=== PATIENT | female | born 1990 | race American Indian/Alaskan Native ===

== ENCOUNTER 2018-01-10 17:20 | Outpatient (CLI) | payer BC ==
[2018-01-10 18:36] VITALS: BP 117/66
--- NOTE | 2018-01-10 20:03 | Ultrasound Report ---
FINAL REPORT PROCEDURE: US OB LIMITED TECHNIQUE: Real-time limited sonographic examination was performed for evaluation of amniotic fluid volume for each fetus with image documentation (1 or more fetuses). CPT 86733 HISTORY: MARKELL, NRFHT COMPARISON: No prior studies are available for comparison. FINDINGS: FETUS IUP: Single living intrauterine . Position: Cephalic Amniotic fluid volume: Amniotic fluid index measures 19.4 centimeters Heart rate and rhythm: 137 BPM, Regular . IMPRESSION: Amniotic fluid index measures 19.4 centimeters
--- NOTE | 2018-01-11 07:17 | Ultrasound Report ---
BIOPHYSICAL PROFILE: INDICATION: Nonreassuring heart tones in clinic. COMPARISON: None similar. TECHNIQUE: Transabdominal ultrasound with Doppler interrogation. 2 - breathing movements 2 - movements 2 - posture and tone 2 - Qualitative amniotic fluid volume 8 - TOTAL SCORE OF POSSIBLE 8 Heart Rate (bpm) 137 CONCLUSION: Findings, as above.
== END 2018-01-10 20:49 | disposition home or self-care (01) ==
LOC: TRG 17:20
PROVIDERS: ATTEND Obstetrics & Gynecology
DX: O47.03 False labor before 37 completed weeks of gestation, third trimester (principal); Z3A.32 32 weeks gestation of pregnancy
CPT/HCPCS: 76815; 76819

== ENCOUNTER 2018-01-31 07:39 | Inpatient (IN) | payer BC ==
[2018-01-31] MEDS ORDERED: TYLENOL PO PRN (09:17)
[2018-01-31 09:27] LABS: Bacteria,Urine 1+ /HPF (Negative); Bilirubin,Urine NEG (Negative); Blood,Urine NEG (Negative); Color,Urine Yellow (Yellow); Mucus,Urine 1+ /HPF; Protein,Urine >500 mg/dL (Negative); Urobilinogen,Urine < 2.0 mg/dL (<2.0)
[2018-01-31 09:32] LABS: Alanine Aminotransferase 10 units/L (7-56); Uric Acid 6.4 mg/dL (3.5-7.6)
[2018-01-31 09:45] LABS: Hematocrit 36.8 % (30.3-42.9); Hemoglobin 11.6 gm/dl (10.1-14.3); Mean Corpuscular HGB Conc 32 % (30-34); Mean Corpuscular Hemoglobin 26 pg (28-32); Mean Corpuscular Volume 82 fl (79-97); Platelet Count 305 K/mm3 (140-440); Red Blood Count 4.48 M/mm3 (3.65-5.03); Red Cell Distribution Width 16.3 % (13.2-15.2)
[2018-01-31] MEDS ORDERED: COLACE PO PRN (10:30)
[2018-01-31] MEDS ORDERED: MAGNESIUM SULFATE 4GM/100ML 4 GM/100 ML BAG IV NR (10:30)
[2018-01-31] MEDS ORDERED: APRESOLINE IV NR (10:30)
[2018-01-31] MEDS: LACTATED RINGERS 1,000 ML IV SCH (11:30)
[2018-01-31] MEDS: CELESTONE SOLUSPAN IM SCH (11:45)
[2018-01-31] MEDS: MAGNESIUM SULFATE 40GM/1000ML 40 GM/1,000 ML BAG IV SCH (12:00)
[2018-01-31] MEDS: PRENATAL VITAMIN PO SCH (12:13)
--- NOTE | 2018-01-31 12:52 | History and Physical Report ---
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 of genital herpes: no Partner hx. of genital herpes: no Rash, Viral, or Febrile illness since last LMP? no Varicella/Chicken Pox Status: Previous Disease TB Risk: no Genetic History Congenital Heart Defect: Mom: no Dad: no Anthony Disease: Mom: no Dad: no Thalassemia Mom: no Dad: no Neural Tube Defect Mom: no Dad: no Down's Syndrome Mom: no Dad: no [place]-Sachs Mom: no Dad: no Sickle Cell Disease/Trait Mom: no Dad: no Hemophilia Mom: no Dad: no Muscular Dystrophy Mom: no Dad: no Cystic Fibrosis Mom: no Dad: no [place] Chorea Mom: no Dad: no Mental Retardation Mom: no Dad: no Fragile X Mom: no Dad: no Other Genetic/Chromosomal Disorder Mom: no Dad: no Child w/other defect Mom: no Dad: no Enviromental Exposures Xray Exposure: no Medication, drug, or alcohol use since LMP: no Chemical/Other Exposure: no Exposure to Cat Liter: no Hx of Parvovirus (Fifth Disease): no 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 Denies nausea, vomiting, headache, swelling of legs, abdominal pain, vaginal discharge, vaginal bleeding and contractions. Denies vaginal discharge, incontinence, dysuria, hematuria, urinary frequency, amenorrhea, menorrhagia, abnormal vaginal bleeding, pelvic pain, genital sores, decreased libido, painful periods, painful sex, urinary urgency, hot flashes, vaginal dryness, vaginal itching and vaginal odor. CV Denies chest pains, palpitations, syncope, dyspnea on exertion, orthopnea, PND and peripheral edema. Resp Denies cough, dyspnea at rest, excessive sputum, hemoptysis, wheezing and pleurisy. GI Denies nausea, vomiting, diarrhea, constipation, change in bowel habits, abdominal pain, melena, hematochezia, jaundice, gas/bloating, indigestion/ heartburn, dysphagia and odynophagia. Endo Denies cold intolerance, heat intolerance, polydipsia, polyphagia, polyuria and unusual weight change. Breast Denies left breast lump, right breast lump, nipple discharge, bloody discharge from nipple, breast pain, abnormal mammogram and breast enlargement. MS Denies back pain, joint pain, joint swelling, muscle cramps, muscle weakness, stiffness, arthritis, sciatica, restless legs, leg pain at night and leg pain with exertion. Derm Denies rash, itching, dryness and suspicious lesions. Neuro Denies paralysis, paresthesias, headache, seizures, tremors, vertigo, transient blindness, frequent falls, frequent headaches and difficulty walking. Psych Denies depression, anxiety, irritability and mood swings. Eyes Denies blurring, diplopia, irritation, discharge, vision loss, eye pain and photophobia. ENT Denies earache, ear discharge, tinnitus, decreased hearing, nasal congestion, nosebleeds, sore throat and hoarseness. Allergy Denies urticaria, allergic rash, hay fever and recurrent infections. Heme Denies abnormal bruising, bleeding and enlarged lymph nodes. PHYSICAL EXAM HEENT: PERRLA, normal conjunctiva, external nose and nasal mucosa normal, oropharynx clear Neck/Thyroid: supple, thyroid normal Skin no significant abnormal lesions or rashes Chest: respiratory effort normal, clear to auscultation Breasts: normal without skin changes or masses CV: regular, normal S1-S2, no murmur, no rub, no gallop Abdomen: normal bowel sounds, soft, nontender, no HSM Musculoskeletal: grossly normal ROM in joints, no joint tenderness or muscle weakness Neuro: grossly normal DTRs, sensation, strength, cranial nerves Extremities: no clubbing, cyanosis, or edema GLOBAL CMO Exams Vulva/Vagina: No lesions, normal BUS, normal rugae Cervix: No lesions; no cervical motion tenderness Uterus: normal size and position, midline, mobile Adnexae: no masses or tenderness Rectovaginal: no masses or tenderness Other Exam Findings pt c/o malodorus d/c Nuswab done today Past History - Obstetrical History Expected Date of Delivery: 03/04/18 Actual Gestation: 35 Week(s) 3 Day(s) : 1 Para: 0 Hx # Term Pregnancies: 0 Number of Pregnancies: 0 Spontaneous Abortions: 0 Induced : 0 Number of Living Children: 0 Medications and Allergies Allergies Allergy/AdvReac Type Severity Reaction Status Date / Time No Known Allergies Allergy Verified 01/31/18 07:52 Active Meds: Active Medications Acetaminophen (Tylenol) 650 mg PO Q4H PRN PRN Reason: Pain MILD(1-3)/Fever >100.5/AMADOR Betamethasone Acet/Betameth SodPhos (Celestone Soluspan) 12 mg IM Q24HR [facility] Stop: 02/01/18 10:01 Last Admin: 01/31/18 11:45 Dose: 12 mg Docusate Sodium (Colace) 100 mg PO Q12H PRN PRN Reason: Constipation Hydralazine HCl (Apresoline) 10 mg IV ONCE NR Stop: 01/31/18 14:00 Lactated Ringer's (Lactated Ringers) 1,000 mls @ 125 mls/hr IV DIRECT [facility] Magnesium Sulfate (Magnesium Sulfate 40gm/1000ml) 40 gm in 1,000 mls @ 50 mls/ hr IV DIRECT [facility] Multivitamins/Iron/Calcium ( Vitamin) 1 each PO QDAY [facility] Last Admin: 01/31/18 12:13 Dose: Not Given - Vital Signs Vital signs: Vital Signs Temp Resp 98.6 F 18 01/31/18 07:58 01/31/18 07:58 Temp Pulse Resp BP Pulse Ox 98.7 F 91 H 18 148/72 99 01/31/18 10:12 01/31/18 12:53 01/31/18 07:58 01/31/18 12:53 01/31/18 12:53 - Physical Exam Breasts: Cardiovascular: Regular rate, Normal S1, Normal S2 Abdomen: Positive: normal appearance, soft, normal bowel sounds. Negative: distention, tenderness Vulva: both: normal Vagina: Positive: normal moisture. Negative: discharge Cervix: Negative: lesion, discharge Uterus: Positive: normal size, normal contour Adnexa: both: normal Anus/Rectum: Positive: normal perianal skin, heme negative. Negative: rectal mass, hemorrhoids Extremities: Positive: edema Deep Tendon Reflex Grade: Normal but brisk +3 - Obstetrical FHR: category 1 Uterine Contraction Monitor Mode: External Results Result Diagrams: 01/31/18 08:49 01/31/18 08:49 Abnormal lab results 01/31/18 01/31/18 Range/Units 08:49 08:49 MCH 26 L (28-32) pg RDW 16.3 H (13.2-15.2) % Creatinine 0.5 L (0.7-1.2) mg/dL Lactate Dehydrogenase 216 H (91-180) units/L All other labs normal. Copy of labs are in hard chart Assessment and Plan 27yo @ 35 weeks with c/o swelling, AMADOR, and "just feeling weird" since last evening. BPs in Triage were in the severe range 170/100 consulted. Deceision to admit to APU MGSO4, BMZ X 2 doses, Apresoline if indicated, 24hr urine collection, consults to AMFM and NICU. Pt aware of POC and voices understanding and agreement. - Patient Problems (1) 35 to 36 weeks gestation of Onset Date: ~01/31/18 Current Visit: Yes Status: Acute (2) IUGR (intrauterine growth restriction) Onset Date: ~01/31/18 Current Visit: Yes Status: Acute (3) Pre-eclampsia affecting , antepartum Onset Date: ~01/31/18 Current Visit: Yes Status: Acute
--- NOTE | 2018-01-31 14:40 | Event Note ---
Date: 01/31/18 Pt admitted for evaluation and to r/o preE. labs are wnl. Will obtain 24hr urine protein and start magnesium sulfate. BMZ will be given. MFM has been consulted as pt was being followed due to IUGR with recommended delivery between 38 and 39 wks. Will con't to closely monitor at this time.
--- NOTE | 2018-01-31 17:01 | Ultrasound Report ---
COMPLETE OB ULTRASOUND: Elevated blood pressures, EWF presentation. Gestation: Gleason Position: Cephalic MARKELL = 8.8 cm Placenta: Anterior Placental Grade: 2 Heart Rate: 142 BPM BPD: 8.4 cm = 33 w d HC: 29.2 cm = 32 w 1 d AC: 27.2 cm = 31 w 2 d FL: 6.4 cm = 33 w 0 d HC/AC Ratio: 1.0 Cephalic Index: 88.7 Estimated Weight: 1902 grams Clinical age = 35 w 3 d EDC: 03/04/18 US Gest. Age = 32 w 4 d EDC: 03/24/18 Comment: Limited study due to body habitus. BIOPHYSICAL PROFILE: 2 - breathing movements 2 - movements 2 - posture and tone 2 - Qualitative amniotic fluid volume 8 - TOTAL SCORE OF POSSIBLE 8 Heart Rate (bpm) 142 Umbilical cord Doppler imaging: Imaging of three free umbilical cord loops demonstrates an average systolic over diastolic ratio of 2.81 with a persistent normal waveform. This falls within the 75th percentile. The average resistive index is 0.64 which falls between the 50th and 95th percentile.
[2018-01-31] MEDS ORDERED: APRESOLINE IV ONE (22:48)
[2018-02-01] MEDS: LACTATED RINGERS 1,000 ML IV SCH ×2 (05:50→17:41)
--- NOTE | 2018-02-01 07:34 | Progress Note ---
Assessment and Plan Pt lying in bed No c/o voiced "Just tired and sore." Will get a anticompression mattress. BP 140-120/90-70 Pt did receive one dose Apresoline over night. Cat 1 strip No ctx recorded. 24hr urine will be complete 1300. P: AMFM to see pt this AM Continue plan of care. Will consult with . - Patient Problems (1) 35 to 36 weeks gestation of Onset Date: ~01/31/18 Current Visit: Yes Status: Acute (2) IUGR (intrauterine growth restriction) Onset Date: ~01/31/18 Current Visit: Yes Status: Acute (3) Pre-eclampsia affecting , antepartum Onset Date: ~01/31/18 Current Visit: Yes Status: Acute Subjective - Subjective Date of service: 02/01/18 (resting C/O being bored) Principal diagnosis: IUP 35w5d with PreE; 24hr urine completes @ 1300 Interval history: EDC Confirmation: 03/04/2018 Gestational Age: 14 1/7 weeks Past History : 1 Living Children: 0 Para: 0 Past Medical History: Negative Past Medical History Past Surgical History: Tonsillectomy ankle surgery Past Medical History 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 of genital herpes: no Partner hx. of genital herpes: no Rash, Viral, or Febrile illness since last LMP? no Varicella/Chicken Pox Status: Previous Disease TB Risk: no Genetic History Congenital Heart Defect: Mom: no Dad: no Anthony Disease: Mom: no Dad: no Thalassemia Mom: no Dad: no Neural Tube Defect Mom: no Dad: no Down's Syndrome Mom: no Dad: no [place]-Sachs Mom: no Dad: no Sickle Cell Disease/Trait Mom: no Dad: no Hemophilia Mom: no Dad: no Muscular Dystrophy Mom: no Dad: no Cystic Fibrosis Mom: no Dad: no [place] Chorea Mom: no Dad: no Mental Retardation Mom: no Dad: no Fragile X Mom: no Dad: no Other Genetic/Chromosomal Disorder Mom: no Dad: no Child w/other defect Mom: no Dad: no Enviromental Exposures Xray Exposure: no Medication, drug, or alcohol use since LMP: no Chemical/Other Exposure: no Exposure to Cat Liter: no Hx of Parvovirus (Fifth Disease): no 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 Denies nausea, vomiting, headache, swelling of legs, abdominal pain, vaginal discharge, vaginal bleeding and contractions. Denies vaginal discharge, incontinence, dysuria, hematuria, urinary frequency, amenorrhea, menorrhagia, abnormal vaginal bleeding, pelvic pain, genital sores, decreased libido, painful periods, painful sex, urinary urgency, hot flashes, vaginal dryness, vaginal itching and vaginal odor. CV Denies chest pains, palpitations, syncope, dyspnea on exertion, orthopnea, PND and peripheral edema. Resp Denies cough, dyspnea at rest, excessive sputum, hemoptysis, wheezing and pleurisy. GI Denies nausea, vomiting, diarrhea, constipation, change in bowel habits, abdominal pain, melena, hematochezia, jaundice, gas/bloating, indigestion/ heartburn, dysphagia and odynophagia. Endo Denies cold intolerance, heat intolerance, polydipsia, polyphagia, polyuria and unusual weight change. Breast Denies left breast lump, right breast lump, nipple discharge, bloody discharge from nipple, breast pain, abnormal mammogram and breast enlargement. MS Denies back pain, joint pain, joint swelling, muscle cramps, muscle weakness, stiffness, arthritis, sciatica, restless legs, leg pain at night and leg pain with exertion. Derm Denies rash, itching, dryness and suspicious lesions. Neuro Denies paralysis, paresthesias, headache, seizures, tremors, vertigo, transient blindness, frequent falls, frequent headaches and difficulty walking. Psych Denies depression, anxiety, irritability and mood swings. Eyes Denies blurring, diplopia, irritation, discharge, vision loss, eye pain and photophobia. ENT Denies earache, ear discharge, tinnitus, decreased hearing, nasal congestion, nosebleeds, sore throat and hoarseness. Allergy Denies urticaria, allergic rash, hay fever and recurrent infections. Heme Denies abnormal bruising, bleeding and enlarged lymph nodes. 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 Vulva/Vagina: No lesions, normal BUS, normal rugae Cervix: No lesions; no cervical motion tenderness Uterus: normal size and position, midline, mobile Adnexae: no masses or tenderness Rectovaginal: no masses or tenderness Other Exam Findings pt c/o malodorus d/c Nuswab done today Patient reports: movement normal Objective - Vital Signs Vital Signs: Vital Signs - 12hr 01/31/18 01/31/18 01/31/18 19:27 19:30 19:32 Temperature 98.2 F Pulse Rate 86 90 Respiratory 16 Rate Blood Pressure O2 Sat by Pulse 98 99 Oximetry 01/31/18 01/31/18 01/31/18 19:37 19:41 19:42 Temperature Pulse Rate 84 77 84 Respiratory Rate Blood Pressure 137/85 O2 Sat by Pulse 97 98 Oximetry 01/31/18 01/31/18 01/31/18 19:47 19:52 19:57 Temperature Pulse Rate 83 86 87 Respiratory Rate Blood Pressure O2 Sat by Pulse 98 97 97 Oximetry 01/31/18 01/31/18 01/31/18 20:02 20:07 20:11 Temperature Pulse Rate 94 H 86 86 Respiratory Rate Blood Pressure 138/92 O2 Sat by Pulse 99 98 Oximetry 01/31/18 01/31/18 01/31/18 20:12 20:17 20:22 Temperature Pulse Rate 88 78 79 Respiratory Rate Blood Pressure O2 Sat by Pulse 98 99 98 Oximetry 01/31/18 01/31/18 01/31/18 20:27 20:32 20:37 Temperature Pulse Rate 78 81 88 Respiratory Rate Blood Pressure O2 Sat by Pulse 100 99 99 Oximetry 01/31/18 01/31/18 01/31/18 20:41 20:42 20:47 Temperature Pulse Rate 89 84 96 H Respiratory Rate Blood Pressure 128/80 O2 Sat by Pulse 100 96 Oximetry 01/31/18 01/31/18 01/31/18 20:48 20:52 20:57 Temperature Pulse Rate 92 H 88 87 Respiratory Rate Blood Pressure O2 Sat by Pulse 94 99 98 Oximetry 01/31/18 01/31/18 01/31/18 21:02 21:07 21:11 Temperature Pulse Rate 102 H 87 83 Respiratory Rate Blood Pressure 140/91 O2 Sat by Pulse 99 99 Oximetry 01/31/18 01/31/18 01/31/18 21:12 21:17 21:22 Temperature Pulse Rate 83 98 H 99 H Respiratory Rate Blood Pressure O2 Sat by Pulse 98 100 100 Oximetry 01/31/18 01/31/18 01/31/18 21:27 21:32 21:37 Temperature Pulse Rate 94 H 95 H 96 H Respiratory Rate Blood Pressure O2 Sat by Pulse 99 99 98 Oximetry 01/31/18 01/31/18 01/31/18 21:42 21:47 21:52 Temperature Pulse Rate 80 95 H 84 Respiratory Rate Blood Pressure O2 Sat by Pulse 100 98 99 Oximetry 01/31/18 01/31/18 01/31/18 21:57 22:02 22:07 Temperature Pulse Rate 88 98 H 91 H Respiratory Rate Blood Pressure O2 Sat by Pulse 99 98 99 Oximetry 01/31/18 01/31/18 01/31/18 22:12 22:17 22:34 Temperature Pulse Rate 100 H 90 83 Respiratory Rate Blood Pressure 175/99 O2 Sat by Pulse 99 99 Oximetry 01/31/18 01/31/18 01/31/18 22:47 22:51 22:56 Temperature Pulse Rate 83 90 90 Respiratory Rate Blood Pressure 175/99 163/90 149/79 O2 Sat by Pulse Oximetry 01/31/18 01/31/18 01/31/18 23:01 23:06 23:11 Temperature Pulse Rate 95 H 91 H 96 H Respiratory Rate Blood Pressure 157/82 148/86 144/91 O2 Sat by Pulse Oximetry 01/31/18 01/31/18 02/01/18 23:30 23:42 00:12 Temperature Pulse Rate 95 H 109 H Respiratory 16 Rate Blood Pressure 123/67 114/65 O2 Sat by Pulse Oximetry 02/01/18 02/01/18 02/01/18 00:44 01:01 01:12 Temperature Pulse Rate 95 H 97 H 96 H Respiratory Rate Blood Pressure 175/103 157/94 123/71 O2 Sat by Pulse Oximetry 02/01/18 02/01/18 02/01/18 01:42 01:47 01:52 Temperature Pulse Rate 90 98 H 92 H Respiratory Rate Blood Pressure 145/89 O2 Sat by Pulse 100 100 100 Oximetry 02/01/18 02/01/18 02/01/18 01:57 02:02 02:07 Temperature Pulse Rate 94 H 103 H 96 H Respiratory Rate Blood Pressure O2 Sat by Pulse 100 100 100 Oximetry 02/01/18 02/01/18 02/01/18 02:12 02:17 02:22 Temperature Pulse Rate 99 H 91 H 93 H Respiratory Rate Blood Pressure 137/82 O2 Sat by Pulse 98 99 99 Oximetry 02/01/18 02/01/18 02/01/18 02:27 03:12 03:30 Temperature Pulse Rate 102 H 97 H Respiratory 18 Rate Blood Pressure 130/62 O2 Sat by Pulse 98 Oximetry 02/01/18 02/01/18 02/01/18 05:12 06:12 07:12 Temperature Pulse Rate 83 85 93 H Respiratory Rate Blood Pressure 139/85 129/70 140/85 O2 Sat by Pulse Oximetry - Exam Breasts: deferred Cardiovascular: Regular rate Abdomen: Present: normal appearance, soft. Absent: distention, tenderness Uterus: Present: normal FHR: auscultation normal, category 1 Uterine Contraction Monitor Mode: External Uterine Contraction Pattern: Absent Extremities: edema Deep Tendon Reflex Grade: Normal +2 - Labs Labs: Abnormal Labs 01/31/18 01/31/18 01/31/18 08:49 08:49 21:20 MCH 26 L RDW 16.3 H Creatinine 0.5 L Magnesium 4.00 H Lactate Dehydrogenase 216 H 02/01/18 03:43 MCH RDW Creatinine Magnesium 4.70 H Lactate Dehydrogenase Laboratory Results - last 24 hr 0801/31/18 01/31/18 08:49 08:49 08:49 WBC 9.0 RBC 4.48 Hgb 11.6 Hct 36.8 MCV 82 MCH 26 L MCHC 32 RDW 16.3 H Plt Count 305 Creatinine 0.5 L Estimated GFR > 60 Uric Acid 6.4 Magnesium AST 15 ALT 10 Lactate Dehydrogenase 216 H Urine Color Yellow Urine Turbidity Slightly-cloudy Urine pH 5.0 Ur Specific [place] 1.020 Urine Protein >500 Urine Glucose (UA) Neg Urine Ketones Neg Urine Blood Neg Urine Nitrite Neg Urine Bilirubin Neg Urine Urobilinogen < 2.0 Ur Leukocyte Esterase Neg Urine WBC (Auto) 3.0 Urine RBC (Auto) 2.0 U Epithel Cells (Auto) 10.0 Urine Bacteria (Auto) 1+ Urine Mucus 1+ Blood Type Antibody Screen 01/31/18 01/31/18 02/01/18 10:47 21:20 03:43 WBC RBC Hgb Hct MCV MCH MCHC RDW Plt Count Creatinine Estimated GFR Uric Acid Magnesium 4.00 H 4.70 H AST ALT Lactate Dehydrogenase Urine Color Urine Turbidity Urine pH Ur Specific [place] Urine Protein Urine Glucose (UA) Urine Ketones Urine Blood Urine Nitrite Urine Bilirubin Urine Urobilinogen Ur Leukocyte Esterase Urine WBC (Auto) Urine RBC (Auto) U Epithel Cells (Auto) Urine Bacteria (Auto) Urine Mucus Blood Type B POSITIVE Antibody Screen Negative
--- NOTE | 2018-02-01 08:16 | Consultation ---
Past History - Obstetrical History : 1 Medications and Allergies Allergies Allergy/AdvReac Type Severity Reaction Status Date / Time No Known Allergies Allergy Verified 01/31/18 07:52 Home Medications Medication Instructions Recorded Confirmed Last Taken Type Formula Tablet 1 tab PO DAILY 01/31/18 01/31/18 Unknown History Active Meds: Active Medications Acetaminophen (Tylenol) 650 mg PO Q4H PRN PRN Reason: Pain MILD(1-3)/Fever >100.5/AMADOR Betamethasone Acet/Betameth SodPhos (Celestone Soluspan) 12 mg IM Q24HR [facility] Stop: 02/01/18 10:01 Last Admin: 01/31/18 11:45 Dose: 12 mg Docusate Sodium (Colace) 100 mg PO Q12H PRN PRN Reason: Constipation Lactated Ringer's (Lactated Ringers) 1,000 mls @ 125 mls/hr IV DIRECT [facility] Last Admin: 02/01/18 05:50 Dose: 125 mls/hr Magnesium Sulfate (Magnesium Sulfate 40gm/1000ml) 40 gm in 1,000 mls @ 50 mls/ hr IV DIRECT [facility] Last Admin: 01/31/18 12:00 Dose: 2 gm/hr, 50 mls/hr Multivitamins/Iron/Calcium ( Vitamin) 1 each PO QDAY [facility] Last Admin: 01/31/18 12:13 Dose: Not Given - Vital Signs Vital signs: Vital Signs Temp Resp 98.6 F 18 01/31/18 07:58 01/31/18 07:58 Temp Pulse Resp BP Pulse Ox 98.4 F 105 H 18 148/94 100 02/01/18 07:36 02/01/18 07:38 02/01/18 07:36 02/01/18 07:36 02/01/18 07:38 Results Result Diagrams: 01/31/18 08:49 01/31/18 08:49 Abnormal lab results 01/31/18 01/31/18 01/31/18 Range/Units 08:49 08:49 21:20 MCH 26 L (28-32) pg RDW 16.3 H (13.2-15.2) % Creatinine 0.5 L (0.7-1.2) mg/dL Magnesium 4.00 H (1.7-2.3) mg/dL Lactate Dehydrogenase 216 H (91-180) units/L 02/01/18 Range/Units 03:43 MCH (28-32) pg RDW (13.2-15.2) % Creatinine (0.7-1.2) mg/dL Magnesium 4.70 H (1.7-2.3) mg/dL Lactate Dehydrogenase (91-180) units/L All other labs normal. Assessment and Plan [facility] Pt seen Full consult to follow FW
[2018-02-01] MEDS: PRENATAL VITAMIN PO SCH (11:11)
[2018-02-01] MEDS: MAGNESIUM SULFATE 40GM/1000ML 40 GM/1,000 ML BAG IV SCH (11:12)
[2018-02-01] MEDS: CELESTONE SOLUSPAN IM SCH (11:48)
[2018-02-01 13:21] LABS: Creatinine 24 Hour,Urine TNR (0.8-2.8); Total Volume,Urine 2300
[2018-02-01 13:29] LABS: Creatinine,Urine 88.6 mg/dL (0.1-20.0)
[2018-02-01 13:42] LABS: Creatinine,Urine 91.3 mg/dL (0.1-20.0)
--- NOTE | 2018-02-01 14:22 | Event Note ---
Date: 02/01/18 (TP >5000) made aware. He ask that I contact [facility] recommends moving forward with delivery.. Pt was vertex on US yesterday Orders in EMR. Pt made aware of plan. SVE by RN cervix closed. Will use Cervidil
[2018-02-01] MEDS ORDERED: ZOFRAN IV PRN (15:01)
[2018-02-01] MEDS ORDERED: BRETHINE SUB-Q PRN (15:01)
[2018-02-01] MEDS ORDERED: SUBLIMAZE IV PRN (15:01)
[2018-02-01] MEDS ORDERED: XYLOCAINE 2% INFILTRATI ONE (16:00)
[2018-02-01] MEDS ORDERED: CERVIDIL VG ONE (16:01)
[2018-02-02] MEDS: MAGNESIUM SULFATE 40GM/1000ML 40 GM/1,000 ML BAG IV SCH (05:19)
[2018-02-02] MEDS: LACTATED RINGERS 1,000 ML IV SCH ×2 (07:34→19:38)
[2018-02-02] MEDS ORDERED: TYLENOL PO PRN (08:26)
[2018-02-02] MEDS ORDERED: CERVIDIL VG ONE (08:39)
[2018-02-02] MEDS ORDERED: APRESOLINE IV NR (09:00)
--- NOTE | 2018-02-02 09:07 | Progress Note ---
Assessment and Plan Cervix still unfavorable, second cervidil place at 0900 Start Procardia to control BP's hydralazine for bp's 160/100 or > clear liquids Plan of care explained, questions encouraged and answered, she voiced understanding and agrees with plan of care - Patient Problems (1) 35 to 36 weeks gestation of Onset Date: ~01/31/18 Current Visit: Yes Status: Acute (2) IUGR (intrauterine growth restriction) Onset Date: ~01/31/18 Current Visit: Yes Status: Acute (3) Obesity, morbid, BMI 50 or higher Current Visit: Yes Status: Acute (4) Pre-eclampsia affecting , antepartum Onset Date: ~01/31/18 Current Visit: Yes Status: Acute Subjective - Subjective Date of service: 02/02/18 Principal diagnosis: IUP 35w5d with Preeclampsia with severe features Interval history: C/o snuffy nose, no AMADOR, no visual changes, no RUQ pain Patient reports: movement normal, no new complaints Objective - Vital Signs Vital Signs: Vital Signs - 12hr 02/01/18 02/01/18 02/01/18 21:07 21:11 21:17 Temperature Pulse Rate 78 90 87 Respiratory Rate Blood Pressure 135/77 O2 Sat by Pulse 98 97 Oximetry 02/01/18 02/01/18 02/01/18 21:22 22:23 23:05 Temperature Pulse Rate 84 83 Respiratory 16 Rate Blood Pressure 143/86 O2 Sat by Pulse 97 Oximetry 02/01/18 02/02/18 02/02/18 23:18 00:02 01:30 Temperature Pulse Rate 90 87 93 H Respiratory Rate Blood Pressure 163/94 154/81 136/76 O2 Sat by Pulse Oximetry 02/02/18 02/02/18 02/02/18 02:18 03:05 05:14 Temperature Pulse Rate 85 86 Respiratory 18 Rate Blood Pressure 140/91 136/84 O2 Sat by Pulse Oximetry 02/02/18 02/02/18 02/02/18 07:04 07:29 07:30 Temperature Pulse Rate 81 87 86 Respiratory Rate Blood Pressure 140/81 171/102 160/95 O2 Sat by Pulse Oximetry 02/02/18 02/02/18 02/02/18 07:35 08:00 08:30 Temperature 98.4 F Pulse Rate 85 85 102 H Respiratory 20 Rate Blood Pressure 163/89 168/91 185/101 O2 Sat by Pulse 98 Oximetry 02/02/18 02/02/18 02/02/18 08:58 09:00 09:05 Temperature Pulse Rate 99 H 96 H 100 H Respiratory Rate Blood Pressure 171/95 162/87 167/91 O2 Sat by Pulse Oximetry - Exam Breasts: deferred Lungs: Normal air movement Abdomen: Present: other (obese). Absent: tenderness, guarding Vulva: both: normal FHR: category 1 Uterine Contraction Monitor Mode: External Cervical Dilatation: 0 Cervical Effacement Percentage: 0 station: -4 Uterine Contraction Pattern: Absent - Labs Labs: Abnormal Labs 01/31/18 01/31/18 01/31/18 08:49 08:49 09:17 MCH 26 L RDW 16.3 H Creatinine 0.5 L Magnesium Lactate Dehydrogenase 216 H Urine Creatinine 91.3 H Ur Total Protein 24 Hr 5796.00 H Urine Total Protein 252 H 01/31/18 01/31/18 02/01/18 09:17 21:20 03:43 MCH RDW Creatinine Magnesium 4.00 H 4.70 H Lactate Dehydrogenase Urine Creatinine 88.6 H Ur Total Protein 24 Hr Urine Total Protein 02/01/18 02/01/18 02/02/18 09:23 20:06 01:52 MCH RDW Creatinine Magnesium 5.20 H 5.30 H 5.40 H Lactate Dehydrogenase Urine Creatinine Ur Total Protein 24 Hr Urine Total Protein Laboratory Results - last 24 hr 01/31/18 01/31/18 02/01/18 09:17 09:17 09:23 Magnesium 5.20 H Urine Total Volume 2300 2300 Urine Creatinine 91.3 H 88.6 H Ur Creatinine 24 Hour TNR Height (in) 69.0 Weight (lb) 122.5 Creatinine Clearance 293 Ur Total Protein 24 Hr 5796.00 H Urine Total Protein 252 H 02/01/18 02/02/18 20:06 01:52 Magnesium 5.30 H 5.40 H Urine Total Volume Urine Creatinine Ur Creatinine 24 Hour Height (in) Weight (lb) Creatinine Clearance Ur Total Protein 24 Hr Urine Total Protein
[2018-02-02] MEDS: PROCARDIA XL PO SCH (09:17)
[2018-02-02] MEDS: DEEP SEA NS SCH ×2 (10:00→17:55)
[2018-02-02] MEDS ORDERED: MAGNESIUM SULFATE 40GM/1000ML 40 GM/1,000 ML BAG IV ONE (13:38)
[2018-02-02] MEDS ORDERED: PITOCin/NS 30 UNIT/500ML 30 UNITS/500 ML BAG IV SCH (22:00)
[2018-02-03] MEDS ORDERED: MAGNESIUM SULFATE 40GM/1000ML 40 GM/1,000 ML BAG IV ONE (00:10)
--- NOTE | 2018-02-03 09:11 | Progress Note ---
Assessment and Plan Patient without complaints, denies AMADOR/visual changes or epigastric pain. most recent mag level 5.3. urine output adequate. b/p seems to be responding well to procardia. mag sulfate @ 2gm/hr, howard in place. Plan of care reviewed with patient for pitocin today and reassessment around dinner time. If not signs of labor, will d/c pitocin and replace cervidil. discussed with patient the expectations of a serial IOL taking sometimes 5 days before labor starts. All questions addressed, pt verbalizes understanding. - Patient Problems (1) 35 to 36 weeks gestation of Onset Date: ~01/31/18 Current Visit: Yes Status: Acute (2) IUGR (intrauterine growth restriction) Onset Date: ~01/31/18 Current Visit: Yes Status: Acute (3) Pre-eclampsia affecting , antepartum Onset Date: ~01/31/18 Current Visit: Yes Status: Acute Subjective - Subjective Date of service: 02/03/18 Principal diagnosis: IUP 35w6d with Preeclampsia with severe features Patient reports: movement normal, no new complaints (no AMADOR, blurred vision or epigastric pain), no loss of fluid, no vaginal bleeding, no contractions Objective - Vital Signs Vital Signs: Vital Signs - 12hr 02/02/18 02/02/18 02/02/18 21:10 21:15 21:20 Temperature Pulse Rate 110 H 102 H 90 Respiratory Rate Blood Pressure Blood Pressure [Left] O2 Sat by Pulse 94 97 96 Oximetry 02/02/18 02/02/18 02/02/18 21:25 21:32 21:38 Temperature Pulse Rate 90 102 H 99 H Respiratory Rate Blood Pressure Blood Pressure [Left] O2 Sat by Pulse 96 98 99 Oximetry 02/02/18 02/02/18 02/02/18 21:43 21:47 21:48 Temperature Pulse Rate 92 H 84 84 Respiratory Rate Blood Pressure 145/81 Blood Pressure [Left] O2 Sat by Pulse 99 99 Oximetry 02/02/18 02/02/18 02/02/18 21:53 21:58 22:03 Temperature Pulse Rate 94 H 93 H 79 Respiratory Rate Blood Pressure Blood Pressure [Left] O2 Sat by Pulse 99 99 98 Oximetry 02/02/18 02/02/18 02/02/18 22:08 22:13 22:17 Temperature Pulse Rate 91 H 100 H 90 Respiratory Rate Blood Pressure 142/81 Blood Pressure [Left] O2 Sat by Pulse 98 95 Oximetry 02/02/18 02/02/18 02/02/18 22:18 22:23 22:28 Temperature Pulse Rate 100 H 89 85 Respiratory Rate Blood Pressure Blood Pressure [Left] O2 Sat by Pulse 97 95 96 Oximetry 02/02/18 02/02/18 02/02/18 22:33 22:38 22:43 Temperature Pulse Rate 89 95 H 92 H Respiratory Rate Blood Pressure Blood Pressure [Left] O2 Sat by Pulse 100 100 100 Oximetry 02/02/18 02/02/18 02/02/18 22:48 22:53 22:58 Temperature Pulse Rate 92 H 105 H 91 H Respiratory Rate Blood Pressure 119/59 Blood Pressure [Left] O2 Sat by Pulse 100 99 99 Oximetry 02/02/18 02/02/18 02/02/18 23:03 23:08 23:13 Temperature Pulse Rate 109 H 90 90 Respiratory Rate Blood Pressure Blood Pressure [Left] O2 Sat by Pulse 100 100 100 Oximetry 02/02/18 02/02/18 02/02/18 23:18 23:23 23:28 Temperature Pulse Rate 89 88 112 H Respiratory Rate Blood Pressure Blood Pressure [Left] O2 Sat by Pulse 100 100 100 Oximetry 02/02/18 02/02/18 02/02/18 23:33 23:38 23:43 Temperature Pulse Rate 84 89 87 Respiratory Rate Blood Pressure Blood Pressure [Left] O2 Sat by Pulse 100 99 98 Oximetry 02/02/18 02/02/18 02/02/18 23:48 23:53 23:58 Temperature Pulse Rate 89 85 85 Respiratory Rate Blood Pressure Blood Pressure [Left] O2 Sat by Pulse 98 97 97 Oximetry 02/03/18 02/03/18 02/03/18 00:00 00:03 00:08 Temperature 98.7 F Pulse Rate 102 H 87 84 Respiratory 18 Rate Blood Pressure Blood Pressure 133/88 [Left] O2 Sat by Pulse 98 97 97 Oximetry 02/03/18 02/03/18 02/03/18 00:13 00:18 00:23 Temperature Pulse Rate 85 86 92 H Respiratory Rate Blood Pressure Blood Pressure [Left] O2 Sat by Pulse 97 97 97 Oximetry 02/03/18 02/03/18 02/03/18 00:28 00:33 00:38 Temperature Pulse Rate 95 H 84 82 Respiratory Rate Blood Pressure Blood Pressure [Left] O2 Sat by Pulse 98 96 96 Oximetry 02/03/18 02/03/18 02/03/18 00:43 00:48 00:55 Temperature Pulse Rate 91 H 106 H 90 Respiratory Rate Blood Pressure Blood Pressure [Left] O2 Sat by Pulse 97 99 99 Oximetry 02/03/18 02/03/18 02/03/18 01:00 01:05 01:10 Temperature Pulse Rate 88 89 95 H Respiratory Rate Blood Pressure Blood Pressure [Left] O2 Sat by Pulse 99 96 96 Oximetry 02/03/18 02/03/18 02/03/18 01:17 01:22 01:26 Temperature Pulse Rate 94 H 95 H 85 Respiratory Rate Blood Pressure 149/76 Blood Pressure [Left] O2 Sat by Pulse 100 98 Oximetry 02/03/18 02/03/18 02/03/18 01:27 01:32 01:37 Temperature Pulse Rate 92 H 88 85 Respiratory Rate Blood Pressure Blood Pressure [Left] O2 Sat by Pulse 97 95 96 Oximetry 02/03/18 02/03/18 02/03/18 01:42 01:47 01:52 Temperature Pulse Rate 110 H 85 84 Respiratory Rate Blood Pressure Blood Pressure [Left] O2 Sat by Pulse 99 98 97 Oximetry 02/03/18 02/03/18 02/03/18 01:57 02:00 02:02 Temperature Pulse Rate 90 84 97 H Respiratory 18 Rate Blood Pressure 174/95 Blood Pressure [Left] O2 Sat by Pulse 99 98 99 Oximetry 02/03/18 02/03/18 02/03/18 02:07 02:12 02:17 Temperature Pulse Rate 79 76 81 Respiratory Rate Blood Pressure 169/91 168/88 Blood Pressure [Left] O2 Sat by Pulse 97 99 98 Oximetry 02/03/18 02/03/18 02/03/18 02:22 02:27 02:32 Temperature Pulse Rate 75 89 78 Respiratory Rate Blood Pressure Blood Pressure [Left] O2 Sat by Pulse 98 97 100 Oximetry 02/03/18 02/03/18 02/03/18 02:34 02:37 02:47 Temperature Pulse Rate 89 75 81 Respiratory Rate Blood Pressure 123/68 Blood Pressure [Left] O2 Sat by Pulse 93 97 Oximetry 02/03/18 02/03/18 02/03/18 03:19 03:24 03:29 Temperature Pulse Rate 83 80 89 Respiratory Rate Blood Pressure Blood Pressure [Left] O2 Sat by Pulse 99 98 100 Oximetry 02/03/18 02/03/18 02/03/18 03:34 03:39 03:44 Temperature Pulse Rate 85 78 84 Respiratory Rate Blood Pressure Blood Pressure [Left] O2 Sat by Pulse 98 98 98 Oximetry 02/03/18 02/03/18 02/03/18 03:45 03:49 03:54 Temperature Pulse Rate 105 H 84 94 H Respiratory Rate Blood Pressure Blood Pressure [Left] O2 Sat by Pulse 91 97 97 Oximetry 02/03/18 02/03/18 02/03/18 03:59 04:00 04:04 Temperature 98 F Pulse Rate 74 100 H 86 Respiratory 18 Rate Blood Pressure Blood Pressure 151/78 [Left] O2 Sat by Pulse 97 98 98 Oximetry 02/03/18 02/03/18 02/03/18 04:09 04:14 04:19 Temperature Pulse Rate 85 85 85 Respiratory Rate Blood Pressure Blood Pressure [Left] O2 Sat by Pulse 97 97 96 Oximetry 02/03/18 02/03/18 02/03/18 04:24 04:29 04:34 Temperature Pulse Rate 79 81 81 Respiratory Rate Blood Pressure Blood Pressure [Left] O2 Sat by Pulse 97 96 97 Oximetry 02/03/18 02/03/18 02/03/18 04:39 04:45 04:48 Temperature Pulse Rate 81 90 58 L Respiratory Rate Blood Pressure Blood Pressure [Left] O2 Sat by Pulse 97 98 76 L Oximetry 02/03/18 02/03/18 02/03/18 04:50 04:55 05:00 Temperature Pulse Rate 79 73 73 Respiratory Rate Blood Pressure Blood Pressure [Left] O2 Sat by Pulse 97 98 97 Oximetry 02/03/18 02/03/18 02/03/18 05:05 05:10 05:13 Temperature Pulse Rate 94 H 74 92 H Respiratory Rate Blood Pressure Blood Pressure [Left] O2 Sat by Pulse 98 97 93 Oximetry 02/03/18 02/03/18 02/03/18 05:15 05:20 05:25 Temperature Pulse Rate 89 75 77 Respiratory Rate Blood Pressure Blood Pressure [Left] O2 Sat by Pulse 90 97 97 Oximetry 02/03/18 02/03/18 02/03/18 05:30 05:34 05:35 Temperature Pulse Rate 99 H 86 104 H Respiratory Rate Blood Pressure 147/75 Blood Pressure [Left] O2 Sat by Pulse 98 99 Oximetry 02/03/18 02/03/18 02/03/18 05:40 05:45 05:48 Temperature Pulse Rate 87 76 83 Respiratory Rate Blood Pressure 149/69 Blood Pressure [Left] O2 Sat by Pulse 97 98 Oximetry 02/03/18 02/03/18 02/03/18 05:50 05:55 06:00 Temperature Pulse Rate 79 78 76 Respiratory Rate Blood Pressure Blood Pressure [Left] O2 Sat by Pulse 98 97 97 Oximetry 02/03/18 02/03/18 02/03/18 06:05 06:10 06:15 Temperature Pulse Rate 87 77 78 Respiratory Rate Blood Pressure Blood Pressure [Left] O2 Sat by Pulse 99 97 98 Oximetry 02/03/18 02/03/18 02/03/18 06:18 06:20 06:25 Temperature Pulse Rate 71 80 61 Respiratory Rate Blood Pressure 133/60 Blood Pressure [Left] O2 Sat by Pulse 97 96 Oximetry 02/03/18 02/03/18 02/03/18 06:30 06:35 06:36 Temperature Pulse Rate 80 84 101 H Respiratory Rate Blood Pressure Blood Pressure [Left] O2 Sat by Pulse 96 99 66 L Oximetry 02/03/18 02/03/18 02/03/18 06:40 06:45 06:48 Temperature Pulse Rate 94 H 90 87 Respiratory Rate Blood Pressure 135/73 Blood Pressure [Left] O2 Sat by Pulse 100 100 Oximetry 02/03/18 02/03/18 02/03/18 06:50 06:55 07:00 Temperature Pulse Rate 83 83 73 Respiratory Rate Blood Pressure Blood Pressure [Left] O2 Sat by Pulse 99 100 100 Oximetry 02/03/18 02/03/18 02/03/18 07:05 07:10 07:15 Temperature Pulse Rate 75 75 73 Respiratory Rate Blood Pressure Blood Pressure [Left] O2 Sat by Pulse 99 99 99 Oximetry 02/03/18 02/03/18 02/03/18 07:18 07:20 07:25 Temperature Pulse Rate 71 75 107 H Respiratory Rate Blood Pressure 119/64 Blood Pressure [Left] O2 Sat by Pulse 99 100 Oximetry 02/03/18 02/03/18 02/03/18 07:30 07:35 07:40 Temperature Pulse Rate 77 77 79 Respiratory Rate Blood Pressure Blood Pressure [Left] O2 Sat by Pulse 99 99 99 Oximetry 02/03/18 02/03/18 02/03/18 07:45 07:48 07:50 Temperature Pulse Rate 83 82 82 Respiratory Rate Blood Pressure 111/53 Blood Pressure [Left] O2 Sat by Pulse 100 100 Oximetry 02/03/18 02/03/18 02/03/18 07:55 08:00 08:05 Temperature Pulse Rate 95 H 89 94 H Respiratory Rate Blood Pressure Blood Pressure [Left] O2 Sat by Pulse 100 99 99 Oximetry 02/03/18 02/03/18 02/03/18 08:13 08:18 08:21 Temperature Pulse Rate 95 H 102 H 88 Respiratory Rate Blood Pressure Blood Pressure [Left] O2 Sat by Pulse 98 97 79 L Oximetry 02/03/18 02/03/18 02/03/18 08:23 08:28 08:33 Temperature Pulse Rate 91 H 97 H 98 H Respiratory Rate Blood Pressure Blood Pressure [Left] O2 Sat by Pulse 99 98 99 Oximetry - Exam Breasts: normal Cardiovascular: Regular rate Lungs: Clear to auscultation, Normal air movement Abdomen: Present: normal appearance, soft Vulva: both: normal Uterus: Present: normal FHR: auscultation normal Uterine Contraction Monitor Mode: External Uterine Contraction Pattern: Irregular Uterine Tone Measurement Phase: Contraction Uterine Contraction Intensity: Mild Extremities: normal Deep Tendon Reflex Grade: Normal +2 - Labs Labs: Abnormal Labs 01/31/18 01/31/18 01/31/18 08:49 08:49 09:17 MCH 26 L RDW 16.3 H Creatinine 0.5 L Magnesium Lactate Dehydrogenase 216 H Urine Creatinine 91.3 H Ur Total Protein 24 Hr 5796.00 H Urine Total Protein 252 H 01/31/18 01/31/18 02/01/18 09:17 21:20 03:43 MCH RDW Creatinine Magnesium 4.00 H 4.70 H Lactate Dehydrogenase Urine Creatinine 88.6 H Ur Total Protein 24 Hr Urine Total Protein 02/01/18 02/01/18 02/02/18 09:23 20:06 01:52 MCH RDW Creatinine Magnesium 5.20 H 5.30 H 5.40 H Lactate Dehydrogenase Urine Creatinine Ur Total Protein 24 Hr Urine Total Protein 02/02/18 02/02/18 02/02/18 09:19 16:15 20:30 MCH RDW Creatinine Magnesium 5.30 H 5.30 H 5.20 H Lactate Dehydrogenase Urine Creatinine Ur Total Protein 24 Hr Urine Total Protein 02/03/18 01:12 MCH RDW Creatinine Magnesium 5.30 H Lactate Dehydrogenase Urine Creatinine Ur Total Protein 24 Hr Urine Total Protein Laboratory Results - last 24 hr 02/02/18 02/02/18 02/02/18 09:19 16:15 20:30 Magnesium 5.30 H 5.30 H 5.20 H 02/03/18 01:12 Magnesium 5.30 H
[2018-02-03] MEDS: PROCARDIA XL PO SCH (11:27)
[2018-02-03] MEDS: LACTATED RINGERS 1,000 ML IV SCH ×2 (11:28→22:01)
[2018-02-03] MEDS ORDERED: APRESOLINE IV ONE (13:15)
[2018-02-03 16:07] LABS: Bacteria,Urine 1+ /HPF (Negative); Bilirubin,Urine NEG (Negative); Blood,Urine NEG (Negative); Color,Urine Yellow (Yellow); Mucus,Urine FEW /HPF; Triple Phosphate Crystal,Urine 1+; Urobilinogen,Urine < 2.0 mg/dL (<2.0)
[2018-02-03 16:12] LABS: Protein,Urine >500 mg/dL (Negative)
[2018-02-03 16:33] LABS: Hematocrit 35.6 % (30.3-42.9); Hemoglobin 11.3 gm/dl (10.1-14.3); Mean Corpuscular HGB Conc 32 % (30-34); Mean Corpuscular Hemoglobin 26 pg (28-32); Mean Corpuscular Volume 82 fl (79-97); Platelet Count 326 K/mm3 (140-440); Red Blood Count 4.37 M/mm3 (3.65-5.03); Red Cell Distribution Width 16.7 % (13.2-15.2)
[2018-02-03 16:56] LABS: Alanine Aminotransferase 48 units/L (7-56); Uric Acid 7.8 mg/dL (3.5-7.6)
--- NOTE | 2018-02-03 17:21 | Event Note ---
Date: 02/03/18 patient comfortable and sleeping, no signs of labor after being on 20mU of pitocin since before noon. Plan to allow dinner, PM care and will do cervidil tonight as previously discussed with patient. Patient did have several elevated blood pressures requiring a dose of hydralizine with good results. Dr. Sahni has been consulted.
--- NOTE | 2018-02-03 19:37 | Progress Note ---
Assessment and Plan b/p's trending upward uncontrolled by procardia. LFTs have increased: AST 15 to 30, ALT 10 to 48. Discussed plan of care, patient states she would like c/s delivery. Dr. Sahni notified and will come see her. CN Notified and consents signed. - Patient Problems (1) 35 to 36 weeks gestation of Onset Date: ~01/31/18 Current Visit: Yes Status: Acute (2) IUGR (intrauterine growth restriction) Onset Date: ~01/31/18 Current Visit: Yes Status: Acute (3) Pre-eclampsia affecting , antepartum Onset Date: ~01/31/18 Current Visit: Yes Status: Acute Subjective - Subjective Date of service: 02/03/18 Principal diagnosis: IUP 35w6d with Preeclampsia with severe features Patient reports: movement normal, no new complaints (no AMADOR, blurred vision or epigastric pain), no loss of fluid, no vaginal bleeding, no contractions Objective - Vital Signs Vital Signs: Vital Signs - 12hr 02/03/18 02/03/18 02/03/18 07:25 07:30 07:35 Pulse Rate 107 H 77 77 Blood Pressure O2 Sat by Pulse 100 99 99 Oximetry 02/03/18 02/03/18 02/03/18 07:40 07:45 07:48 Pulse Rate 79 83 82 Blood Pressure 111/53 O2 Sat by Pulse 99 100 Oximetry 02/03/18 02/03/18 02/03/18 07:50 07:55 08:00 Pulse Rate 82 95 H 89 Blood Pressure O2 Sat by Pulse 100 100 99 Oximetry 02/03/18 02/03/18 02/03/18 08:05 08:13 08:18 Pulse Rate 94 H 95 H 102 H Blood Pressure O2 Sat by Pulse 99 98 97 Oximetry 02/03/18 02/03/18 02/03/18 08:21 08:23 08:28 Pulse Rate 88 91 H 97 H Blood Pressure O2 Sat by Pulse 79 L 99 98 Oximetry 02/03/18 02/03/18 02/03/18 08:33 09:34 09:39 Pulse Rate 98 H 125 H 114 H Blood Pressure O2 Sat by Pulse 99 99 98 Oximetry 02/03/18 02/03/18 02/03/18 09:44 09:46 09:47 Pulse Rate 105 H 104 H 106 H Blood Pressure 177/93 171/88 O2 Sat by Pulse 98 Oximetry 02/03/18 02/03/18 02/03/18 09:49 09:54 09:59 Pulse Rate 113 H 100 H 99 H Blood Pressure O2 Sat by Pulse 99 98 99 Oximetry 02/03/18 02/03/18 02/03/18 10:04 10:09 10:14 Pulse Rate 110 H 98 H 104 H Blood Pressure O2 Sat by Pulse 99 99 99 Oximetry 02/03/18 02/03/18 02/03/18 10:17 10:19 10:24 Pulse Rate 97 H 101 H 99 H Blood Pressure 158/85 O2 Sat by Pulse 98 98 Oximetry 02/03/18 02/03/18 02/03/18 10:27 10:29 10:34 Pulse Rate 116 H 115 H 101 H Blood Pressure O2 Sat by Pulse 87 99 100 Oximetry 02/03/18 02/03/18 02/03/18 10:39 10:44 10:47 Pulse Rate 108 H 105 H 103 H Blood Pressure 166/82 O2 Sat by Pulse 100 100 Oximetry 02/03/18 02/03/18 02/03/18 10:49 10:54 10:59 Pulse Rate 104 H 104 H 102 H Blood Pressure O2 Sat by Pulse 98 97 99 Oximetry 02/03/18 02/03/18 02/03/18 11:04 11:09 11:14 Pulse Rate 106 H 104 H 97 H Blood Pressure O2 Sat by Pulse 99 97 97 Oximetry 02/03/18 02/03/18 02/03/18 11:17 11:19 11:24 Pulse Rate 97 H 95 H 105 H Blood Pressure 170/96 O2 Sat by Pulse 96 100 Oximetry 02/03/18 02/03/18 02/03/18 11:29 11:34 11:47 Pulse Rate 98 H 96 H 95 H Blood Pressure 140/110 O2 Sat by Pulse 98 98 Oximetry 02/03/18 02/03/18 02/03/18 12:01 12:06 12:11 Pulse Rate 89 94 H 94 H Blood Pressure 152/98 O2 Sat by Pulse 99 99 99 Oximetry 02/03/18 02/03/18 02/03/18 12:16 12:17 12:21 Pulse Rate 93 H 88 98 H Blood Pressure 159/92 O2 Sat by Pulse 99 99 Oximetry 02/03/18 02/03/18 02/03/18 12:26 12:31 12:36 Pulse Rate 92 H 98 H 96 H Blood Pressure O2 Sat by Pulse 97 96 98 Oximetry 02/03/18 02/03/18 02/03/18 12:41 12:46 12:47 Pulse Rate 97 H 96 H 94 H Blood Pressure 170/103 O2 Sat by Pulse 100 99 Oximetry 02/03/18 02/03/18 02/03/18 12:49 12:51 12:56 Pulse Rate 92 H 98 H 92 H Blood Pressure 172/102 O2 Sat by Pulse 99 98 Oximetry 02/03/18 02/03/18 02/03/18 13:01 13:06 13:11 Pulse Rate 106 H 94 H 75 Blood Pressure O2 Sat by Pulse 97 98 94 Oximetry 02/03/18 02/03/18 02/03/18 13:16 13:17 13:21 Pulse Rate 109 H 107 H 107 H Blood Pressure 163/90 O2 Sat by Pulse 98 98 Oximetry 02/03/18 02/03/18 02/03/18 13:26 13:31 13:36 Pulse Rate 114 H 110 H 105 H Blood Pressure O2 Sat by Pulse 99 98 98 Oximetry 02/03/18 02/03/18 02/03/18 13:38 13:41 13:46 Pulse Rate 111 H 120 H 108 H Blood Pressure O2 Sat by Pulse 85 96 99 Oximetry 02/03/18 02/03/18 02/03/18 13:47 13:51 13:56 Pulse Rate 109 H 100 H 107 H Blood Pressure 120/69 O2 Sat by Pulse 98 98 Oximetry 02/03/18 02/03/18 02/03/18 14:00 14:17 14:27 Pulse Rate 55 L 104 H 116 H Blood Pressure 139/85 O2 Sat by Pulse 78 L 99 Oximetry 02/03/18 02/03/18 02/03/18 14:32 14:37 14:42 Pulse Rate 104 H 105 H 98 H Blood Pressure O2 Sat by Pulse 98 99 99 Oximetry 02/03/18 02/03/18 02/03/18 14:47 15:17 15:47 Pulse Rate 101 H 89 93 H Blood Pressure 141/86 126/72 130/76 O2 Sat by Pulse 98 Oximetry 02/03/18 02/03/18 02/03/18 17:17 17:48 17:50 Pulse Rate 101 H 100 H 96 H Blood Pressure 165/113 193/109 180/89 O2 Sat by Pulse Oximetry 02/03/18 02/03/18 02/03/18 18:05 18:17 18:47 Pulse Rate 89 90 100 H Blood Pressure 164/95 174/89 189/110 O2 Sat by Pulse Oximetry 02/03/18 19:17 Pulse Rate 99 H Blood Pressure 192/102 O2 Sat by Pulse Oximetry - Exam Cardiovascular: Regular rate Lungs: Clear to auscultation Abdomen: Present: normal appearance, soft Vulva: both: normal Uterus: Present: normal FHR: auscultation normal, category 1 Uterine Contraction Monitor Mode: External Uterine Contraction Pattern: Irregular Uterine Tone Measurement Phase: Resting Extremities: normal Deep Tendon Reflex Grade: Normal +2 - Labs Labs: Abnormal Labs 01/31/18 01/31/18 01/31/18 08:49 08:49 09:17 MCH 26 L RDW 16.3 H Creatinine 0.5 L Uric Acid Magnesium Lactate Dehydrogenase 216 H Urine WBC (Auto) Urine Creatinine 91.3 H Ur Total Protein 24 Hr 5796.00 H Urine Total Protein 252 H 01/31/18 01/31/18 02/01/18 09:17 21:20 03:43 MCH RDW Creatinine Uric Acid Magnesium 4.00 H 4.70 H Lactate Dehydrogenase Urine WBC (Auto) Urine Creatinine 88.6 H Ur Total Protein 24 Hr Urine Total Protein 02/01/18 02/01/18 02/02/18 09:23 20:06 01:52 MCH RDW Creatinine Uric Acid Magnesium 5.20 H 5.30 H 5.40 H Lactate Dehydrogenase Urine WBC (Auto) Urine Creatinine Ur Total Protein 24 Hr Urine Total Protein 02/02/18 02/02/18 02/02/18 09:19 16:15 20:30 MCH RDW Creatinine Uric Acid Magnesium 5.30 H 5.30 H 5.20 H Lactate Dehydrogenase Urine WBC (Auto) Urine Creatinine Ur Total Protein 24 Hr Urine Total Protein 02/03/18 02/03/18 02/03/18 01:12 08:45 15:30 MCH RDW Creatinine Uric Acid Magnesium 5.30 H 5.10 H Lactate Dehydrogenase Urine WBC (Auto) 9.0 H Urine Creatinine Ur Total Protein 24 Hr Urine Total Protein 02/03/18 02/03/18 16:09 16:09 MCH 26 L RDW 16.7 H Creatinine 0.5 L Uric Acid 7.8 H Magnesium 4.70 H Lactate Dehydrogenase 214 H Urine WBC (Auto) Urine Creatinine Ur Total Protein 24 Hr Urine Total Protein Laboratory Results - last 24 hr 02/02/18 02/03/18 02/03/18 20:30 01:12 08:45 WBC RBC Hgb Hct MCV MCH MCHC RDW Plt Count Creatinine Estimated GFR Uric Acid Magnesium 5.20 H 5.30 H 5.10 H AST ALT Lactate Dehydrogenase Urine Color Urine Turbidity Urine pH Ur Specific [place] Urine Protein Urine Glucose (UA) Urine Ketones Urine Blood Urine Nitrite Urine Bilirubin Urine Urobilinogen Ur Leukocyte Esterase Urine WBC (Auto) Urine RBC (Auto) U Epithel Cells (Auto) Urine Bacteria (Auto) Triple Phos Crystals Urine Mucus 02/03/18 02/03/18 02/03/18 15:30 16:09 16:09 WBC 10.6 RBC 4.37 Hgb 11.3 Hct 35.6 MCV 82 MCH 26 L MCHC 32 RDW 16.7 H Plt Count 326 Creatinine 0.5 L Estimated GFR > 60 Uric Acid 7.8 H Magnesium 4.70 H AST 30 ALT 48 Lactate Dehydrogenase 214 H Urine Color Yellow Urine Turbidity Cloudy Urine pH 7.0 Ur Specific [place] 1.014 Urine Protein >500 Urine Glucose (UA) Neg Urine Ketones Neg Urine Blood Neg Urine Nitrite Neg Urine Bilirubin Neg Urine Urobilinogen < 2.0 Ur Leukocyte Esterase Sm Urine WBC (Auto) 9.0 H Urine RBC (Auto) 3.0 U Epithel Cells (Auto) 1.0 Urine Bacteria (Auto) 1+ Triple Phos Crystals 1+ Urine Mucus Few
[2018-02-03] MEDS ORDERED: ANCEF/STERILE WATER 2 GM/20 ML 2 GM/20 ML SYRINGE IV NR (20:00)
[2018-02-03] MEDS ORDERED: BICITRA PO ONE (20:00)
[2018-02-03] MEDS ORDERED: PEPCID IV ONE (20:00)
[2018-02-03] MEDS ORDERED: REGLAN IV ONE (20:00)
[2018-02-03] MEDS ORDERED: CERVIDIL VG ONE (20:00)
--- NOTE | 2018-02-03 21:37 | Anesthesia Consultation ---
Anesthesia Consult and Med Hx Date of service: 02/03/18 - Airway Anesthetic Teeth Evaluation: Good ROM Head & Neck: Adequate Mental/Hyoid Distance: Adequate Mallampati Class: Class II Intubation Access Assessment: Possibly Difficult - Pulmonary Exam CTA: Yes - Cardiac Exam Cardiac Exam: RRR - Pre-Operative Health Status ASA Pre-Surgery Classification: ASA3, Emergency Proposed Anesthetic Plan: Epidural, Spinal - Pulmonary Hx Asthma: No COPD: No Hx Pneumonia: No - Cardiovascular System Hx Hypertension: No (PIH) - Central Nervous System Hx Seizures: No Hx Psychiatric Problems: No - Endocrine Hx Renal Disease: No Hx End Stage Renal Disease: No Hx Hypothyroidism: No Hx Hyperthyroidism: No - Hematic Hx Anemia: No Hx Sickle Cell Disease: No - Other Systems Hx Alcohol Use: No Hx Obesity: Yes
--- NOTE | 2018-02-03 21:37 | Anesthesia Day of Surgery ---
Anesthesia Day of Surgery - Day of Surgery Patient Examined: Yes Patient H&P Reviewed: Yes Patient is NPO: Yes (FSP)
[2018-02-03] MEDS: MAGNESIUM SULFATE 40GM/1000ML 40 GM/1,000 ML BAG IV SCH (22:00)
[2018-02-03] MEDS ORDERED: WATER FOR IRRIG STERILE IR ONE (22:30)
[2018-02-03] MEDS ORDERED: NACL 0.9% IR ONE (22:30)
[2018-02-03] MEDS: PITOCin/NS 20 UNIT/1000ML DRIP 20 UNITS/1,000 ML BAG IV SCH (23:00)
[2018-02-03] MEDS ORDERED: XYLOCAINE MPF 2% ONE ×2 (23:19→23:33)
[2018-02-03] MEDS ORDERED: SUBLIMAZE ONE (23:20)
[2018-02-03] MEDS ORDERED: NEO SYNEPHRINE/NS Syringe(OR USE) IV ONE (23:37)
[2018-02-03] MEDS ORDERED: DILAUDID PCA 6MG/30ML IV SCH (23:45)
--- NOTE | 2018-02-03 23:52 | Operative Report ---
Operative Report Operative Report: Date of procedure: 02/03/2018 Pre-operative diagnosis:. Intrauterine uterine at 35 weeks with severe preeclampsia and intrauterine growth restriction and failed induction and failed induction. Morbid obesity Post-operative diagnosis: Same Procedure name(s): Primary low transverse section Surgeon: Sherif Sahni MD Textile Engineer: Perlita Jarvis certified nurse duster tender Anesthesia: Spinal EBL: 800 mL Complications: None Findings: Patient with normal uterus tubes and ovaries bilaterally. Male infant 4 lbs. 4 oz. Apgars 8 at 1 minute and 9 at 5 minutes Specimen(s): Placenta Procedure: The patient was brought to the operating room. A spinal was placed without any complications. She was then placed in left lateral tilt. Prepped and draped in the usual sterile manner. After testing for adequate anesthesia level, a Pfannenstiel incision was made. This incision was taken down to the fascia. The fascia was then nicked in the midline. This incision was extended out laterally with Steiner scissors. The fascia was then sharply and bluntly from the underlying rectus muscles. The rectus muscles were bluntly and sharply . The peritoneum was then entered with the metal stamping machine operator's fingers. This incision was spread vertically with care not to damage the bladder below. The bladder flap was then formed sharply and bluntly with Metzenbaum scissors. The Alexandre self-retaining tractor was then placed without any difficulty. A transverse incision was made in lower uterine segment. This incision was extended laterally with the operators fingers. The amniotic sac was then entered bluntly with the metal stamping machine operator's fingers. The infant was delivered from the vertex position. Bulb suction on the mother's abdomen. Cord was double clamped and cut. The was then passed to the nursery personnel who were in attendance. The above scores were given by the nursery personnel. The placenta was then bluntly removed. The uterus was then externalized and wiped clean the remaining products. The uterine incision was closed in layers. The first incision was closed in a locking manner using 0 Vicryl. This was followed by imbricating stitch also with 0 Vicryl. This closure was hemostatic. The bladder flap was copiously irrigated and found to be hemostatic. The pelvis was copiously irrigated and found to be hemostatic. The uterus was then placed back to the patient's abdomen. The retractors were removed. The rectus muscles were inspected and found to be hemostatic. The fascia was then closed in a running manner using 0 Vicryl. This incision was hemostatic irrigation Bovie. The skin was reapproximated with 4-0 Vicryl subcuticularly. The patient tolerated procedure well. Her urine was clear. The infant was admitted to the intensive care nursery. The patient was accompanied to recovery room in good condition. Instrument count correct times 3.
[2018-02-04] MEDS: PITOCin/NS 20 UNIT/1000ML DRIP 20 UNITS/1,000 ML BAG IV SCH (00:24)
[2018-02-04] MEDS: MAGNESIUM SULFATE 40GM/1000ML 40 GM/1,000 ML BAG IV SCH ×2 (00:25→18:18)
[2018-02-04] MEDS ORDERED: D5LR 1,000 ML IV SCH (00:47)
[2018-02-04] MEDS ORDERED: PITOCin/NS 20 UNIT/1000ML DRIP 20 UNITS/1,000 ML BAG IV SCH (00:47)
[2018-02-04] MEDS ORDERED: LANSINOH TP PRN (00:47)
[2018-02-04] MEDS ORDERED: MILK OF MAGNESIA PO PRN (00:47)
[2018-02-04] MEDS ORDERED: TUCKS PAD TP PRN (00:47)
[2018-02-04] MEDS ORDERED: SODIUM CHLORIDE FLUSH SYRINGE 10 ML IV NR (00:47)
[2018-02-04] MEDS ORDERED: NARCAN 0.4 MG/1 ML IV PRN (00:47)
[2018-02-04] MEDS: NORMODYNE PO SCH ×3 (01:02→22:45)
[2018-02-04] MEDS: ANCEF/NS 1 GM/50 ML 1 GM/50 ML BAG IV SCH ×2 (04:05→13:09)
--- NOTE | 2018-02-04 06:28 | Post Anesthesia Evaluation ---
- Post Anesthesia Evaluation Patient Participated: Yes Airway Patent: Yes Stable Respiratory Function: Yes Temp > 96.8F: Yes Pain Manageable: Yes Adequeate Hydration: Yes Anesthesia Complications: No Block Receding Appropriately: Yes
[2018-02-04] MEDS: PRENATAL VITAMIN PO SCH (10:41)
--- NOTE | 2018-02-04 13:56 | Progress Note ---
Assessment and Plan patient doing well, no concerns. Lochia scant, dressing dry and intact, fundus firm. b/p 140-160's/80-90's - denies AMADOR/visual changes/epigastric pain. She is currently on labetalol 200mg BID. postop H&H ordered for 1143 and not yet drawn (called Mihaela at [phone], states there is someone coming to drawn it now). urine output is adequate. last mag level 4.7. Plan to continue mag/howard x24hr then will d/c. Plan to continue monitoring closely, continue postop pathway. - Patient Problems (1) Pre-eclampsia affecting , antepartum Onset Date: ~01/31/18 Current Visit: Yes Status: Acute (2) delivery delivered Current Visit: Yes Status: Acute Subjective - Subjective Date of service: 02/04/18 Principal diagnosis: postop day #1 s/p primary c/s; pre-e Patient reports: pain well controlled, no dizzy ambulation, no nauseated, no other (no AMADOR, visual changes or epigastric pain) : in NICU Objective - Vital Signs Latest vital signs: Vital Signs Temp Pulse Resp BP BP Pulse Ox 02/04/18 13:10 100 H 147/88 02/04/18 09:00 98.5 F 91 H 18 145/87 02/04/18 06:00 18 165/92 02/04/18 05:25 18 02/04/18 04:00 18 160/94 02/04/18 01:30 99 F 99 H 18 176/97 100 02/04/18 01:02 164/90 02/04/18 01:00 98.6 F 25 H 164/90 100 02/04/18 00:45 27 H 162/92 100 02/04/18 00:30 26 H 167/98 100 02/04/18 00:00 17 158/94 100 02/03/18 23:45 98.2 F 15 149/87 100 02/03/18 22:16 94 H 188/101 02/03/18 22:09 93 H 182/98 02/03/18 21:52 102 H 99 02/03/18 21:47 97 H 99 02/03/18 21:46 97 H 187/99 02/03/18 21:42 98 H 98 02/03/18 21:37 97 H 99 08/25/18 21:32 99 H 99 02/03/18 21:27 98 H 99 02/03/18 21:22 104 H 99 02/03/18 21:17 100 H 99 02/03/18 21:16 101 H 151/95 02/03/18 21:12 103 H 99 02/03/18 21:07 97 H 100 02/03/18 21:02 100 H 100 02/03/18 20:57 102 H 99 02/03/18 20:52 102 H 100 02/03/18 20:47 104 H 99 02/03/18 20:46 91 H 185/105 02/03/18 20:34 103 H 99 02/03/18 20:29 89 98 02/03/18 20:24 100 H 99 02/03/18 20:19 98 H 98 02/03/18 20:16 97 H 178/97 02/03/18 20:14 97 H 98 02/03/18 19:59 97 H 99 02/03/18 19:47 99 H 183/104 02/03/18 19:39 87 100 02/03/18 19:34 96 H 99 02/03/18 19:29 97 H 166/81 99 02/03/18 19:27 99.1 F 20 02/03/18 19:17 99 H 192/102 02/03/18 18:47 100 H 189/110 02/03/18 18:17 90 174/89 02/03/18 18:05 89 164/95 02/03/18 17:50 96 H 180/89 02/03/18 17:48 100 H 193/109 02/03/18 17:17 101 H 165/113 02/03/18 15:47 93 H 130/76 02/03/18 15:17 89 126/72 02/03/18 14:47 101 H 141/86 98 02/03/18 14:42 98 H 99 02/03/18 14:37 105 H 99 02/03/18 14:32 104 H 98 02/03/18 14:27 116 H 99 02/03/18 14:17 104 H 139/85 02/03/18 14:00 55 L 78 L 02/03/18 13:56 107 H 98 Intake and Output 02/03/18 02/04/18 02/04/18 23:59 07:59 15:59 Intake Total 2700 585.833 Output Total 1505 900 600 Balance 1195 -314.167 -600 Intake: IV 2700 345.833 ANCEF/NS 1 GM/50 ML 1 gm 50 In 50 ml @ 100 mls/hr IV Q8H [facility] Rx#:[id number] Lactated Ringers 1,000 ml 1000 @ 125 mls/hr IV DIRECT [facility] Rx#:[id number] MAGNESIUM SULFATE 40GM/ 120.833 1000ML 40 gm In 1,000 ml @ 2 GM/HR 50 mls/hr IV DIRECT [facility] Rx#:[id number] PITOCin/NS 20 UNIT/1000ML 175 DRIP 20 units In 1,000 ml @ 125 mls/hr IV DIRECT [facility] Rx#:[id number] Intake, Free Water 240 Output: Urine 1505 900 600 Indwelling Catheter 1430 900 600 Other: Total, Output Amount 400 900 600 Estimated Blood Loss 800 - Exam Breasts: Present: normal Cardiovascular: Present: Regular rate Lungs: Present: Clear to auscultation, Normal air movement Abdomen: Present: normal appearance, soft. Absent: distention, tenderness Vulva: both: normal Uterus: Present: normal, firm, fundal height at umbilicus Extremities: Present: normal Deep Tendon Reflex Grade: Normal +2 Incision: Present: normal, dry, dressed - Labs Labs: Abnormal lab results 02/03/18 02/03/18 02/03/18 Range/Units 15:30 16:09 16:09 MCH 26 L (28-32) pg RDW 16.7 H (13.2-15.2) % Creatinine 0.5 L (0.7-1.2) mg/dL Uric Acid 7.8 H (3.5-7.6) mg/dL Magnesium 4.70 H (1.7-2.3) mg/dL Lactate Dehydrogenase 214 H (91-180) units/L Urine WBC (Auto) 9.0 H (0.0-6.0) /HPF 02/03/18 02/04/18 02/04/18 Range/Units 19:53 02:15 10:36 MCH (28-32) pg RDW (13.2-15.2) % Creatinine (0.7-1.2) mg/dL Uric Acid (3.5-7.6) mg/dL Magnesium 5.00 H 4.50 H 4.70 H (1.7-2.3) mg/dL Lactate Dehydrogenase (91-180) units/L Urine WBC (Auto) (0.0-6.0) /HPF
[2018-02-04 14:56] LABS: Hematocrit 31.5 % (30.3-42.9); Hemoglobin 10.2 gm/dl (10.1-14.3)
[2018-02-05] MEDS: MOTRIN PO PRN ×2 (00:15→06:30)
[2018-02-05] MEDS: NORCO 5/325 PO PRN ×2 (00:15→06:30)
[2018-02-05] MEDS ORDERED: BOOSTRIX IM ONE (06:00)
--- NOTE | 2018-02-05 06:21 | Progress Note ---
Assessment and Plan - Patient Problems (1) delivery delivered Onset Date: ~02/03/18 Current Visit: Yes Status: Acute Plan to address problem: pt resting No c/o voiced BP 150-130/90-70 FF below umb Lochia scant Incision D& I Doing well s/p section P: continue pathway Close observation BP Advance diet and activity as tolerated. Subjective - Subjective Date of service: 02/05/18 (no c/o voiced) Principal diagnosis: postop day #2 s/p primary c/s; pre-e Interval history: EDC Confirmation: 03/04/2018 Gestational Age: 14 1/7 weeks Past History : 1 Living Children: 0 Para: 0 Past Medical History: Negative Past Medical History Past Surgical History: Tonsillectomy ankle surgery Past Medical History Surgery (Non-behavioral health assistant): 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 of genital herpes: no Partner hx. of genital herpes: no Rash, Viral, or Febrile illness since last LMP? no Varicella/Chicken Pox Status: Previous Disease TB Risk: no Genetic History Congenital Heart Defect: Mom: no Dad: no Anthony Disease: Mom: no Dad: no Thalassemia Mom: no Dad: no Neural Tube Defect Mom: no Dad: no Down's Syndrome Mom: no Dad: no [place]-Sachs Mom: no Dad: no Sickle Cell Disease/Trait Mom: no Dad: no Hemophilia Mom: no Dad: no Muscular Dystrophy Mom: no Dad: no Cystic Fibrosis Mom: no Dad: no Banner Chorea Mom: no Dad: no Mental Retardation Mom: no Dad: no Fragile X Mom: no Dad: no Other Genetic/Chromosomal Disorder Mom: no Dad: no Child w/other defect Mom: no Dad: no Enviromental Exposures Xray Exposure: no Medication, drug, or alcohol use since LMP: no Chemical/Other Exposure: no Exposure to Cat Liter: no Hx of Parvovirus (Fifth Disease): no 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 Denies nausea, vomiting, headache, swelling of legs, abdominal pain, vaginal discharge, vaginal bleeding and contractions. Denies vaginal discharge, incontinence, dysuria, hematuria, urinary frequency, amenorrhea, menorrhagia, abnormal vaginal bleeding, pelvic pain, genital sores, decreased libido, painful periods, painful sex, urinary urgency, hot flashes, vaginal dryness, vaginal itching and vaginal odor. CV Denies chest pains, palpitations, syncope, dyspnea on exertion, orthopnea, PND and peripheral edema. Resp Denies cough, dyspnea at rest, excessive sputum, hemoptysis, wheezing and pleurisy. GI Denies nausea, vomiting, diarrhea, constipation, change in bowel habits, abdominal pain, melena, hematochezia, jaundice, gas/bloating, indigestion/ heartburn, dysphagia and odynophagia. Endo Denies cold intolerance, heat intolerance, polydipsia, polyphagia, polyuria and unusual weight change. Breast Denies left breast lump, right breast lump, nipple discharge, bloody discharge from nipple, breast pain, abnormal mammogram and breast enlargement. MS Denies back pain, joint pain, joint swelling, muscle cramps, muscle weakness, stiffness, arthritis, sciatica, restless legs, leg pain at night and leg pain with exertion. Derm Denies rash, itching, dryness and suspicious lesions. Neuro Denies paralysis, paresthesias, headache, seizures, tremors, vertigo, transient blindness, frequent falls, frequent headaches and difficulty walking. Psych Denies depression, anxiety, irritability and mood swings. Eyes Denies blurring, diplopia, irritation, discharge, vision loss, eye pain and photophobia. ENT Denies earache, ear discharge, tinnitus, decreased hearing, nasal congestion, nosebleeds, sore throat and hoarseness. Allergy Denies urticaria, allergic rash, hay fever and recurrent infections. Heme Denies abnormal bruising, bleeding and enlarged lymph nodes. 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6 F 76 18 131/78 02/04/18 18:20 98.5 F 101 H 18 138/90 02/04/18 18:15 20 02/04/18 16:37 18 02/04/18 15:30 99.5 F 105 H 18 134/81 02/04/18 13:45 20 02/04/18 13:10 100 H 20 147/88 02/04/18 13:08 98.4 F 100 H 20 147/88 02/04/18 10:43 20 02/04/18 09:00 98.5 F 91 H 18 145/87 02/04/18 08:59 20 02/04/18 07:20 20 Intake and Output 02/04/18 02/04/18 02/05/18 14:59 22:59 06:59 Intake Total 1194.167 Output Total 600 1600 2400 Balance -600 -405.833 -2400 Intake: IV 894.167 MAGNESIUM SULFATE 40GM/ 894.167 1000ML 40 gm In 1,000 ml @ 2 GM/HR 50 mls/hr IV DIRECT [facility] Rx#:[id number] Intake, Free Water 300 Output: Urine 600 1600 2400 Indwelling Catheter 600 1600 1000 Void 1400 Other: Total, Output Amount 600 700 600 # Voids Void 1 - Exam Breasts: Present: normal Cardiovascular: Present: Regular rate Lungs: Present: Normal air movement Abdomen: Present: normal appearance, soft, normal bowel sounds Uterus: Present: normal Extremities: Present: normal Incision: Present: normal, dry, intact - Labs Labs: Abnormal lab results 02/04/18 02/04/18 Range/Units 10:36 17:27 Magnesium 4.70 H 4.60 H (1.7-2.3) mg/dL
[2018-02-05] MEDS: NORMODYNE PO SCH ×2 (10:30→22:14)
[2018-02-05] MEDS: PRENATAL VITAMIN PO SCH (10:30)
[2018-02-06] MEDS: MOTRIN PO PRN (03:51)
--- NOTE | 2018-02-06 07:55 | Discharge Summary ---
Providers - Providers Date of Admission: 01/31/18 07:40 Date of discharge: 02/06/18 (pt agrees with d/c ) Attending physician: SIMEON BRAGA 02/04/18 00:47 Consult to [facility] Cashier [CONS] Routine Reason For Exam: Primary care physician: SIMEON BRAGA Hospitalization Reason for admission: induction of labor, other (PreE) Delivery: Procedure: primary low transverse Episiotomy: none Laceration: none Incision: normal, dry, intact Other procedures: none complications: none Discharge diagnosis: delivery Raven baby: male Hospital course: uncomplicated section - failed induction Pt resting No c/o voiced BP 130-120/80-70 FF below umb Lochia scant Incision D& I Asymptomatic anemia Doing well s/p c/s; PreE P: d/c today with instructions RTO Monday for BP check and postop visit. RX Labetalol 200mg po BID to continue after d/c. Condition at discharge: Good Disposition: DC- TO HOME OR SELFCARE - Discharge Diagnoses (1) delivery delivered Status: Acute Comment: RTO Monday for BP check and postop visit Plan - Discharge Medications Prescriptions: Ferrous Sulfate [Feosol 325 MG tab] 325 mg PO BID #60 tablet Ibuprofen [Motrin 800 MG tab] 800 mg PO Q6H PRN #30 tablet PRN Reason: Pain Labetalol [Normodyne TAB] 200 mg PO BID #60 tablet Lidocain2.5%/Prilocai2.5% [Emla] 5 gm TP PRN #1 tube oxyCODONE /ACETAMINOPHEN [Percocet 5/325 mg] 1 - 2 tab PO Q4H PRN #30 tablet PRN Reason: Pain, Moderate - Provider Discharge Summary Additional instructions: [] Smoking cessation referral if applicable(refer to patient education folder for contact #) [] Refer to [facility] Booklet Call your doctor immediately for: * Fever > 100.5 * Heavy vaginal bleeding ( >1 pad per hour) * Severe persistent headache * Shortness of breath * Reddened, hot, painful area to leg or breast * Drainage or odor from incision. * Keep incision clean and dry at all times and follow doctor's instructions regarding bathing/showering - Follow up plan Follow up: SIMEON BRAGA MD [Primary Care Provider] - 02/09/18 9:45 am (Congratulations! Please call [phone] to schedule your son's circumcision and your postoperative visit in one week. You have a visit scheduled for Monday for a blood pressure check at 9:45am in the [place] office. Please continue to take your Labetalol as prescribed. Bring the EMLA cream with you to your son's visit. Do NOT use at home. Take medications as prescribed. Call with headache, blurred vision, chest pain. Call with concerns.)
[2018-02-06] MEDS: PRENATAL VITAMIN PO SCH (09:04)
[2018-02-06] MEDS: NORMODYNE PO SCH (09:04)
[2018-02-06 10:44] VITALS: BP 159/99
== END 2018-02-06 09:00 | disposition home or self-care (01) | DRG 765 ==
LOC: TRG 07:39 → LD 07:40 → TRG 07:40 → OB 02-04 01:15
PROVIDERS: ADMIT Obstetrics & Gynecology; ATTEND Obstetrics & Gynecology
PROC: 3E0P7VZ Introduction of Hormone into Female Reproductive, Via Natural or Artificial Opening (ICD-10-PCS; 2018-02-01)
PROC: 3E0P7VZ Introduction of Hormone into Female Reproductive, Via Natural or Artificial Opening (ICD-10-PCS; 2018-02-02)
PROC: 10D00Z1 Extraction of Products of Conception, Low, Open Approach (ICD-10-PCS; principal; 2018-02-03)
PROC: 3E0234Z Introduction of Serum, Toxoid and Vaccine into Muscle, Percutaneous Approach (ICD-10-PCS; 2018-02-05)
DX: O60.14X0 Preterm labor third trimester with preterm delivery third trimester, not applicable or unspecified (principal); Z68.43 Body mass index [BMI] 50.0-59.9, adult; O36.5930 Maternal care for other known or suspected poor fetal growth, third trimester, not applicable or unspecified; O61.9 Failed induction of labor, unspecified; O61.8 Other failed induction of labor; E66.01 Morbid (severe) obesity due to excess calories; O13.4 Gestational [pregnancy-induced] hypertension without significant proteinuria, complicating childbirth; O99.214 Obesity complicating childbirth; Z3A.35 35 weeks gestation of pregnancy; Z37.0 Single live birth; Z71.3 Dietary counseling and surveillance; Z23 Encounter for immunization; Z90.89 Acquired absence of other organs; O14.14 Severe pre-eclampsia complicating childbirth
CPT/HCPCS: 36415; 76805; 76819; 76820; 81001; 82565; 82570; 82575; 83615; 83735; 84156; 84450; 84460; 84550; 85014; 85018; 85027; 86850; 86900; 86901; 87116; 90471; 90715; 99211; A6250; G0463; J0360; J0690; J0702; J1170; J2370; J2590; J2765; J3010; J3475; J7120; J7121